=== PATIENT | female | born 1990 | race Caucasian/White ===

== ENCOUNTER 2016-12-30 14:03 | Emergency (ER) | payer MEDICAID ==
[~2016-12-30] VITALS: Ht 154.9 cm; Wt 98.2 kg
[~2016-12-30 14:03] MED LIST: DOXYCYCLINE 10100 MG PO; GLUCOPHAGE500 MG/TAB PO; METHERGINE0.2 MG/TAB PO; MOTRIN 600600 MG/TAB PO; PERCOCET 325 MG1 TA2 PO; PRENATAL1 TA7 PO
[2016-12-30 14:05] VITALS: TEMP 101
[2016-12-30] MEDS ORDERED: ZANTAC 150150 MG (14:27)
[2016-12-30] MEDS ORDERED: HYZAAR 25 MG-101 TAB PO (14:27)
[2016-12-30] MEDS ORDERED: CELEXA 20MG20 MG/TAB PO (14:28)
[2016-12-30 14:45] LABS: INFLUENZA B NEGATIVE
[2016-12-30] MEDS ORDERED: TAMIFLU 75MG75 MG PO (15:22)
[2016-12-30 15:26] VITALS: BP 129/78; PULSE 122
== END 2016-12-30 15:15 | disposition home or self-care (01) ==
LOC: COL.ER 14:03
PROVIDERS: Emergency Medicine
DX: J10.1 Influenza due to other identified influenza virus with other respiratory manifestations (principal); I10 Essential (primary) hypertension